=== PATIENT | male | born 1975 | race Caucasian/White ===

== ENCOUNTER 2017-01-09 11:25 | Emergency (ER) | payer SELFPAY ==
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
[2017-01-09 11:46] VITALS: BMI 24.0
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
[2017-01-09] MEDS ORDERED: DIPHTH,PERTUSS(ACELL),TET 0.5 ML DISP.SYRIN IM ONE (12:31)
[2017-01-09] MEDS ORDERED: KETOROLAC TROMETHAMINE 10 MG TABLET PO ONE (15:12)
[2017-01-09] MEDS ORDERED: ACETAMINOPHEN 500 MG TABLET (FP) PO ONE (15:14)
[2017-01-09] MEDS ORDERED: ACETAMINOPHEN 325 MG TABLET (FP) ONE (15:40)
[2017-01-09 17:10] VITALS: BP 115/71; PULSE 60; TEMP 97.5
== END 2017-01-09 17:22 | disposition home or self-care (01) ==
LOC: JER 11:25
PROC: 0HQEXZZ Repair Left Lower Arm Skin, External Approach (ICD-10-PCS; principal; 2017-01-09)
PROC: 3E0234Z Introduction of Serum, Toxoid and Vaccine into Muscle, Percutaneous Approach (ICD-10-PCS; 2017-01-09)
DX: S51.812A Laceration without foreign body of left forearm, initial encounter (principal); S00.93XA Contusion of unspecified part of head, initial encounter; Y04.0XXA Assault by unarmed brawl or fight, initial encounter; Y93.9 Activity, unspecified; Y92.9 Unspecified place or not applicable
CPT/HCPCS: 70150-TC; 70450-TC; 70486-TC; 90715; 99283-25